=== PATIENT | female | born 1940 | race American Indian/Alaskan Native ===

== ENCOUNTER 2016-06-12 19:46 | Emergency (ER) | payer BC, MEDICARE ==
--- NOTE | 2016-06-12 23:46 | Emergency Department Report ---
ED General Adult HPI - General Chief complaint: Fall Stated complaint: LACERATION TO HEAD, FALL Time Seen by Provider: 06/12/16 23:40 Source: patient, family, RN notes reviewed Mode of arrival: Ambulatory Limitations: No Limitations, Language Barrier - History of Present Illness Initial comments: This is a 75-year-old female. She is previously unknown to me. She is brought to the hospital by her daughter. The patient declines formal salesperson men's furnishings, requested the family translated for her. The patient comes with a mechanical trip and fall, and occipital scalp laceration. Prior to the fall, there is no dizziness, lightheadedness, chest pain, shortness of breath. Apparently after the fall, the patient described a brief period of dizziness which has since resolved. Patient has chronic left- sided exotropic strabismus. As for the patient's daughter, the patient is at her mental status baseline. The patient had a noncontrast CT scan of the brain and cervical spine which were negative for acute disease. The patient was given a tetanus vaccination in the ER. An occipital laceration was irrigated with copious sterile saline at adequate pressure, had 2 licha placed in an interrupted fashion with good cosmetic outcome. The patient was observed in the ER for a few hours, multiple neurologic examinations were unremarkable, and unchanged. The patient is going to be discharged with instructions to follow-up with a local outpatient primary care doctor. Wound care instructions were reviewed with the patient started to verbalize understanding. -: Sudden Location: head Severity scale (0 -10): 4 Associated Symptoms: denies: chest pain, cough, diaphoresis, fever/chills, loss of appetite, malaise, nausea/vomiting, shortness of breath, syncope, weakness - Related Data Allergies Allergy/AdvReac Type Severity Reaction Status Date / Time No Known Allergies Allergy Verified 06/12/16 20:13 ED Review of Systems ROS: Stated complaint: LACERATION TO HEAD, FALL Other details as noted in HPI Constitutional: denies: fever Eyes: denies: vision change Respiratory: denies: cough, shortness of breath Cardiovascular: denies: chest pain Gastrointestinal: denies: abdominal pain Genitourinary: as per HPI Musculoskeletal: as per HPI Skin: as per HPI Neurological: headache Psychiatric: as per HPI ED Past Medical Hx - Past Medical History Previous Medical History?: Yes Hx Hypertension: Yes - Surgical History Past Surgical History?: Yes Additional Surgical History: C-Sec x 1 - Social History Smoking Status: Never Smoker Substance Use Type: None ED Physical Exam - General Limitations: No Limitations, Language Barrier General appearance: alert, in no apparent distress - Head Head exam: Present: atraumatic, normocephalic - Eye Eye exam: Present: normal appearance, PERRL, EOMI, other (there is a left-sided exotropic strabismus. This is chronic.). Absent: nystagmus - ENT ENT exam: Present: normal exam, normal orophraynx, mucous membranes moist, normal external ear exam - Neck Neck exam: Present: normal inspection, full ROM. Absent: tenderness, meningismus - Respiratory Respiratory exam: Present: normal lung sounds bilaterally. Absent: respiratory distress, wheezes, rales, rhonchi, stridor, chest wall tenderness, accessory muscle use, decreased breath sounds, prolonged expiratory - Cardiovascular Cardiovascular Exam: Present: regular rate, normal rhythm, normal heart sounds. Absent: bradycardia, tachycardia, irregular rhythm, systolic murmur, diastolic murmur, rubs, gallop - GI/Abdominal GI/Abdominal exam: Present: soft, normal bowel sounds. Absent: distended, tenderness, guarding, rebound, rigid, pulsatile mass - Extremities Exam Extremities exam: Present: normal inspection, full ROM, normal capillary refill. Absent: tenderness, pedal edema, joint swelling, calf tenderness - Back Exam Back exam: Present: normal inspection, full ROM. Absent: tenderness, CVA tenderness (R), CVA tenderness (L), muscle spasm, paraspinal tenderness, vertebral tenderness - Neurological Exam Neurological exam: Present: alert, oriented X3, normal gait, other (Extraocular movements intact. Tongue midline. No facial droop. Facial sensation intact to light touch in the V1, V2, V3 distribution bilaterally. 5 and 5 strength in 4 extremities.. Sensation is intact to light touch in 4 extremities.). Absent : motor sensory deficit - Psychiatric Psychiatric exam: Present: normal affect, normal mood - Skin Skin exam: Present: warm, other (laceration is noted to the occipital scalp region) ED Course Vital Signs 06/12/16 20:05 Temperature 97.6 F Pulse Rate 97 H Respiratory 16 Rate Blood Pressure 154/101 [Right] O2 Sat by Pulse 100 Oximetry - Laceration /Wound Repair Posterior Medial Occipital Wound Location: head Wound's Depth, Shape: superficial, linear Wound Explored: clean Irrigated w/ Saline (ccs): 500 Anesthesia: Lidocaine w/ Epi Volume Anesthetic (ccs): 3 Progress: she has simple scalp laceration was irrigated with copious sterile saline and adequate pressure. It is explored under bloodless field. No foreign bodies are noted. 2 interrupted licha are placed. The patient tolerated the procedure well. There was good cosmetic outcome. ED Medical Decision Making - Lab Data Vital Signs 06/12/16 06/13/16 20:05 01:38 Temperature 97.6 F 98.4 F Pulse Rate 97 H 81 Respiratory 16 16 Rate Blood Pressure 154/101 154/77 [Right] O2 Sat by Pulse 100 99 Oximetry - Radiology Data Radiology results: report reviewed, image reviewed Noncontrast CT scan of the brain and cervical spine negative for acute disease, DJD is noted. Critical care attestation.: If time is entered above; I have spent that time in minutes in the direct care of this critically ill patient, excluding procedure time. ED Disposition Clinical Impression: Laceration Disposition: DISCHARGED TO HOME OR SELFCARE Is pt being admited?: No Does the pt Need Aspirin: No Condition: Stable Instructions: Suture Care (ED), Laceration (ED) Additional Instructions: Wash the laceration site with gentle soap and water every 8-12 hours. Apply bacitracin, Neosporin or [id number] antibiotics every 8-12 hours. [place] should be taken out within 7-10 days. Follow-up with the primary care doctor within 3-5 days for a wound check. Return to the ER right away with fevers or chills, lethargy, irritability, projectile vomiting, change in mental status, inability to tolerate liquid feeds. Referrals: ARCHIE RIVERA [Other] - 3-5 Days
[2016-06-12] MEDS ORDERED: BOOSTRIX IM ONE (23:54)
[2016-06-12] MEDS ORDERED: XYLOCAINE 2%/ EPI 1:200,000 INFILTRATI ONE (23:54)
[2016-06-12] MEDS ORDERED: NACL 0.9% IR ONE (23:54)
--- NOTE | 2016-06-13 01:26 | Cat Scan Report ---
FINAL REPORT PROCEDURE: CT HEAD/BRAIN WO CON TECHNIQUE: Computerized tomography of the head was performed without contrast material. HISTORY: fall, scalp lac, prior dizzy COMPARISON: No prior studies are available for comparison. FINDINGS: Skull and scalp: Normal. Paranasal sinuses: Normal. Ventricles and subarachnoid spaces: There is mild central and cortical atrophy. There is no hydrocephalus or asymmetry per. Cerebrum: No evidence of hemorrhage, acute infarction or mass. There is chronic periventricular deep white matter ischemic gliosis. Cerebellum and brainstem: No evidence of hemorrhage, acute infarction or mass. Vasculature: There is calcified plaque in the cavernous portions of the internal carotid arteries.. Comments: None. IMPRESSION: There is chronic involutional change and ischemic gliosis. There is no skull fracture. There is no hemorrhage per
--- NOTE | 2016-06-13 01:32 | Cat Scan Report ---
FINAL REPORT PROCEDURE: CT CERVICAL SPINE WO CON TECHNIQUE: Computerized tomography of the cervical spine was performed from the skull base to T1 without contrast material. HISTORY: fall, scalp lac, prior dizzy COMPARISON: No prior studies are available for comparison. FINDINGS: Skull base and foramen magnum are intact. Cervical vertebrae are intact. There is straightening of the cervical spine. There are no fractures or malalignments. There is advanced degenerative disc change and loss of disc height and osteophytic ridging at C3-C4, C5-C6 and C6-C7. Facet joints are intact. Prevertebral soft tissues are normal in thickness. The skull base and the foramen magnum are intact. The lung apices are clear.. IMPRESSION: There are degenerative changes. There is no fracture or malalignment..
[2016-06-13 01:39] VITALS: BP 154/77
== END 2016-06-13 01:51 | disposition home or self-care (01) ==
LOC: ED 19:46
DX: S01.01XA Laceration without foreign body of scalp, initial encounter (principal); I10 Essential (primary) hypertension; W01.0XXA Fall on same level from slipping, tripping and stumbling without subsequent striking against object, initial encounter; Y93.89 Activity, other specified; Y99.8 Other external cause status; Y92.89 Other specified places as the place of occurrence of the external cause
CPT/HCPCS: 70450; 72125; 90471; 90715